=== PATIENT | female | born 1945 | race Caucasian/White ===

== ENCOUNTER 2021-10-15 12:58 | Emergency (ER) | payer MEDICARE, SELFPAY ==
--- NOTE | ~2021-10-15 | XR_ITS ---
EXAMINATION: XR chest 2V DATE: 10/15/2021 14:31 INDICATION: Cough and shortness of breath. TECHNIQUE: Frontal and lateral views of the chest were obtained. COMPARISON: Chest 2 views 09/06/2015 FINDINGS: The chest demonstrates clear lungs without pneumonia, pleural effusion, or pneumothorax. Th e heart size is normal. Surgical clips in the right upper quadrant are likely from cholecystectomy. IMPRESSION: 1. No acute cardiopulmonary disease. Reviewed, dictated and finalized at [facility].
[2021-10-15 13:09] VITALS: BP 120/73; PULSE 86; RESP 20; TEMP 36.2; O2SAT 97
[2021-10-15 14:27] LABS: Basophils Percent Auto 0.2 % (0.2-1.2); Eosinophils Absolute Auto 0.1 K/mm3 (0-0.3); Eosinophils Percent Auto 0.8 % (0-4.4); Hematocrit 42.8 % (37.0-47.0); Hemoglobin 14.1 g/dL (12.0-15.0); Immature Granulocyte Absolute 0.06 K/mm3 (0.00-0.031); Immature Granulocyte Percent A 0.5 % (0-0.5); Lymphocytes Absolute Auto 1.92 K/mm3 (0.9-3.2); Mean Corpuscular HGB Conc 32.9 g/dl (32-36); Mean Corpuscular Hemoglobin 27.8 pg (26-34); Mean Corpuscular Volume 84.3 fl (80-100); Mean Platelet Volume 9.5 fl (7.4-10.4); Monocytes Percent Auto 7.8 % (2.6-8.5); Neutrophils Absolute Auto 9.7 K/mm3 (1.3-6.7); Neutrophils Percent Auto 75.7 % (45.5-73.1); Platelet Count Result 327 k/mm3 (150-375); Red Blood Count 5.08 M/mm3 (4.2-5.4); Red Cell Distribution Width 12.1 % (11.5-14.5); White Blood Count 12.8 K/mm3 (4.5-10.0)
[2021-10-15 14:37] LABS: Alanine Aminotransferase 20 U/L (6-35); Alkaline Phosphatase 230 U/L (38-126); Anion Gap 6 mmol/L (8-16); Aspartate Amino Transferase 20 U/L (14-36); Bilirubin,Total 0.6 mg/dL (0.2-1.3); Blood Urea Nitrogen 11 mg/dL (7-17); Carbon Dioxide 29 mmol/L (22-30); Chloride 100 mmol/L (98-107); Estimated CRCL calculation 56 ml/min; Estimated Glomerular Filt Rate > 60; Glucose 224 mg/dL (65-110); Potassium 3.8 mmol/L (3.4-5.0); Sodium 135 mmol/L (137-145)
[2021-10-15 14:52] LABS: Appearance Urine Slightly Cloudy (Clear); Bilirubin Urine Negative (Negative); Blood Urine 2+ (Negative); Color Urine Yellow (Yellow); Glucose Urine UA 1+ mg/dL (Negative); Ketones Urine 1+ mg/dL (Negative); Leukocyte Esterase Ur 2+ LEU/UL (Negative); Nitrate Urine Positive (Negative); Protein Urine 1+ mg/dL (Negative)
[2021-10-15 14:56] LABS: Bacteria Urine 4+ /hpf; Mucus Urine Rare /lpf; Squamous Epithelial Cell Urine Rare /hpf (Few); WBC Urine >75 /hpf
[2021-10-15 14:58] LABS: Add Urine Microscopic? YES
[2021-10-15 15:06] LABS: SARS-CoV-2 RNA PCR Negative
--- NOTE | 2021-10-15 15:41 | ED.URI ---
HPI - URI/Sore Throat General Chief Complaint: Upper Respiratory Infection Stated Complaint: Upper respiratory symptoms Time Seen by Provider: 10/15/21 14:16 Source: patient History of Present Illness HPI Narrative: Patient presents with cough and congestion for the past few days. She also reports chills and some nausea. Of note she had a ureter biopsy a couple days ago she reports she had some cough congestion prior to but since the biopsy she developed the chills and nausea. She reached out to her urologist performed biopsy and he recommended that she go to the emergency room to be evaluated for postprocedural infection. Patient denies any abdominal pain she denies any urinary symptoms she denies diarrhea she denies any shortness of breath. Related Data Home Medications Medication Instructions Recorded Confirmed fluticasone propionate 50 1 spray intranasal DAILY 05/17/19 mcg/actuation nasal spray,suspension gabapentin 300 mg capsule 300 mg PO QID 05/17/19 insulin aspar prt-insulin aspart subcut DAILY 05/17/19 100 unit/mL (70-30) subcutaneous soln (Novolog Mix 70-30 U-100 Insuln) insulin glargine 100 unit/mL (3 30 unit subcut 05/17/19 mL) subcutaneous pen (Lantus Solostar U-100 Insulin) lovastatin 40 mg tablet 40 mg PO DAILY 05/17/19 mupirocin 2 % topical ointment 1 applic topical TID 05/17/19 omega 7-yrn-kdg-fish oil 1,000 mg 1 cap PO BID 05/17/19 (120 mg-180 mg) capsule (Fish Oil) omeprazole 20 mg capsule,delayed 05/17/19 release Allergies Allergy/AdvReac Type Severity Reaction Status Date / Time acetaminophen Allergy Unknown Unknown Verified 05/17/19 18:19 codeine Allergy Unknown Vomiting Verified 05/17/19 18:19 diphenhydramine Allergy Unknown Rash Verified 05/17/19 18:19 hydrocodone Allergy Unknown Vomiting Verified 05/17/19 18:19 Review of Systems Review of Systems: CONSTITUTIONAL: Patient with subjective chills and sweats EYES: Denies visual changes, redness, or discharge. ENT: Reports congestion and sinus pressure CARDIOVASCULAR: Denies chest pain, palpitations, or edema. RESPIRATORY: Reports cough GASTROINTESTINAL: Denies abdominal pain, vomiting, or diarrhea. GENITOURINARY: Denies dysuria or hematuria. SKIN: Denies rash or itching. MUSCULOSKELETAL: Denies back pain, joint pain, or myalgia. NEUROLOGIC: Denies headache, numbness, dizziness, or weakness. PSYCHIATRIC: Denies anxiety or depression. All systems reviewed & are unremarkable except as noted in HPI and below PMFSH Past Medical History Medical History Anxiety DM II (diabetes mellitus, type II), controlled GERD (gastroesophageal reflux disease) Hepatitis A Hypercholesteremia Nose fracture Pancreatitis Peripheral neuropathy Sternal fracture Toe fracture Surgical History Surgical History History of cholecystectomy History of hysterectomy Social History Social History Smoking packs per day: 1 Smoking cigarettes per day: 20.0 Smoking status: Current every day smoker Gender identity (if verbalized by the patient): Female Exam Narrative: GENERAL: Well-appearing, well-nourished, and in no acute distress. HEAD: Normocephalic, atraumatic. EYES: PERRLA and EOMI. ENT: Nares clear, no rhinorrhea or epistaxis. Mucous membranes moist. NECK: Supple. No masses. No JVD CHEST: Clear to auscultation. No respiratory distress. No wheezes rales or rhonchi HEART: Regular rate and rhythm. No murmur heard. Normal peripheral pulses. ABDOMEN: Soft, nontender, nondistended, no CVA tenderness EXTREMITIES: Normal range of motion. No edema. SKIN: Warm, dry, no rash. NEURO: No focal deficits. Alert and oriented x3. PSYCH: Normal mood and affect. Course Reevaluation(s) Reevaluation #1: Patient declined supportive therapies in the emergency room and
[2021-10-15] MEDS: levoFLOXacin 750 MG TABLET PO (15:55)
== END 2021-10-15 15:58 | disposition home or self-care (01) ==
PROVIDERS: Emergency Provider Emergency Medicine; PCP Internal Medicine
DX: J06.9 Acute upper respiratory infection, unspecified (principal); N39.0 Urinary tract infection, site not specified; F41.9 Anxiety disorder, unspecified; E11.9 Type 2 diabetes mellitus without complications; F17.210 Nicotine dependence, cigarettes, uncomplicated; Z79.4 Long term (current) use of insulin
CPT/HCPCS: 36415; 71046; 80053; 81001; 85025; 87077; 87086; 87186; 99283; A9270; C9803; U0003; U0005

== ENCOUNTER 2021-11-10 10:58 | Emergency (ER) | payer MEDICARE, SELFPAY ==
--- NOTE | ~2021-11-10 | CT_ITS ---
EXAMINATION: CT brain wo con DATE: 11/10/2021 12:15 INDICATION: Headache, weakness. History of malignancy. TECHNIQUE: Computed tomography (CT) of the head was performed without intravenous contrast. The mA wa s adjusted according to patient size. Iterative reconstruction technique was employed. Exam dose: 52 9.67 mGy-cm total exam DLP. COMPARISON: 05/17/2019 CT brain FINDINGS: Bilateral internal carotid artery calcifications. There is nonspecific diminished attenuati on of the cerebral white matter, likely due to chronic small vessel ischemic changes. No intracranial mass lesion or hemorrhage or cerebrovascular accident, midline shift or mass effect i s noted. No subdural or epidural hematoma. Mild to moderate cerebral volume loss. The paranasal sinuses that are included in the study are unremarkable. Mastoid air cells are normally developed and aerated. No fracture or bone destruction of the cranial vault. IMPRESSION: Cerebral atherosclerosis and chronic small vessel ischemic changes of the cerebral white matter No acute intracranial finding Reviewed, dictated and finalized at [facility]. Reviewed, dictated and finalized at [facility].
[2021-11-10 10:59] VITALS: BP 134/55; PULSE 84; RESP 20; TEMP 36.6; O2SAT 99
--- NOTE | 2021-11-10 11:30 | ECG_ITS ---
Measurements Intervals [place] Rate: 73 P: 69 [place]: 153 QRS: -9 QRSD: 90 T: 34 QT: 375 QTc: 414 Interpretive Statements SINUS RHYTHM ANTEROSEPTAL MYOCARDIAL INFARCTION , OF INDETERMINATE AGE [40+ ms Q WAVE IN V1-V4] COMPARED TO ECG 05/17/2019 18:47:45 MYOCARDIAL INFARCT FINDING NOW PRESENT Electronically Signed On 11-10-2021 22:46:44 CDT by Sarah Clemons M.D.
[2021-11-10 11:32] VITALS: BP 137/65; PULSE 75; PULSE 76; RESP 24; O2SAT 95
[2021-11-10 11:32] LABS: Glucose Point of Care 270 mg/dl (65-105)
--- NOTE | 2021-11-10 11:58 | ED.GENADULT ---
HPI - General Adult General Chief complaint: Unspecified <Katherine Madrigal PA-C - Last Filed: 11/10/21 18:27> Stated complaint: clammy, shakes since last noc <Katherine Madrigal PA-C - Last Filed: 11/10/21 18:27> Time Seen by Provider: 11/10/21 11:47 <Katherine Madrigal PA-C - Last Filed: 11/10/21 18:27> History of Present Illness HPI narrative: Patient is 76-year-old female with a history of diabetes, here with her daughters for evaluation of multiple medical complaints. She tells me that for the past 3 days, she has felt weak, clammy, shaky, and just generally out of it . She notes she has had difficulty controlling her blood sugars and they have been elevated. She also reports a headache over the front of her head that has been intermittent, states that she has never gotten headaches in the past and this is new for her. She has a past medical history of recently diagnosed kidney cancer, for which she follows at [facility]. She is set to get the kidney removed next month. Additionally was treated for UTI last month that grew E. coli on culture. Denies back pain, fevers, shortness of breath, chest pain, abdominal pain. <Katherine Madrigal PA-C - Last Filed: 11/10/21 18:27> Related Data Home medications: Home Medications Medication Instructions Recorded Confirmed fluticasone propionate 50 1 spray intranasal DAILY 05/17/19 mcg/actuation nasal spray,suspension gabapentin 300 mg capsule 300 mg PO QID 05/17/19 insulin aspar prt-insulin aspart unit subcut DAILY 05/17/19 100 unit/mL (70-30) subcutaneous soln (Novolog Mix 70-30 U-100 Insuln) insulin glargine 100 unit/mL (3 25 unit subcut 05/17/19 mL) subcutaneous pen (Lantus Solostar U-100 Insulin) lovastatin 40 mg tablet 40 mg PO DAILY 05/17/19 omega 4-der-lso-fish oil 1,000 mg 1 cap PO BID 05/17/19 (120 mg-180 mg) capsule (Fish Oil) omeprazole 20 mg capsule,delayed 05/17/19 release <Katherine Madrigal PA-C - Last Filed: 11/10/21 18:27> Allergies/adverse reactions: Allergies Allergy/AdvReac Type Severity Reaction Status Date / Time acetaminophen Allergy Unknown Unknown Verified 11/10/21 11:09 codeine Allergy Unknown Vomiting Verified 11/10/21 11:09 diphenhydramine Allergy Unknown Rash Verified 11/10/21 11:09 hydrocodone Allergy Unknown Vomiting Verified 11/10/21 11:09 <Katherine Madrigal PA-C - Last Filed: 11/10/21 18:27> Review of Systems Review of Systems: Gen: Reports weakness, clamminess Eyes: Denies eye pain or visual change ENT: Denies congestion Respiratory: Denies shortness of breath or cough CV: Denies chest pain or palpitations GI: Denies abdominal pain nausea, emesis or diarrhea : denies burning, urgency, frequency or hematuria Musculoskeletal: Denies back pain or muscle pain Neuro: Reports headache. Denies numbness, tingling, weakness or focal weakness Skin: Denies rash Except as documented, all other systems reviewed and negative <Katherine Madrigal PA-C - Last Filed: 11/10/21 18:27> [facility] Past Medical History Medical History: Medical History Anxiety DM II (diabetes mellitus, type II), controlled GERD (gastroesophageal reflux disease) Hepatitis A Hypercholesteremia Nose fracture Pancreatitis Peripheral neuropathy Sternal fracture Toe fracture <Katherine Madrigal PA-C - Last Filed: 11/10/21 18:27> Surgical History Surgical History: Surgical History History of cholecystectomy History of hysterectomy <Katherine Madrigal PA-C - Last Filed: 11/10/21 18:27> Social History Social History: Social History Smoking packs per day: 1 Smoking cigarettes per day: 20.0 Smoking status: Current every day smoker Gender identity (if verbalized by the patien
[2021-11-10] MEDS: SODIUM CHLORIDE 0.9% IV 1,000 ML 999 ML IV CONT (12:03)
[2021-11-10 12:36] LABS: Basophils Percent Auto 0.2 % (0.2-1.2); Eosinophils Percent Auto 0.3 % (0-4.4); Hematocrit 37.5 % (37.0-47.0); Hemoglobin 12.2 g/dL (12.0-15.0); Immature Granulocyte Absolute 0.05 K/mm3 (0.00-0.031); Immature Granulocyte Percent A 0.4 % (0-0.5); Lymphocytes Percent Auto 9.1 % (18.3-44.2); Mean Corpuscular HGB Conc 32.5 g/dl (32-36); Mean Corpuscular Hemoglobin 26.9 pg (26-34); Mean Corpuscular Volume 82.8 fl (80-100); Mean Platelet Volume 10.3 fl (7.4-10.4); Monocytes Percent Auto 8.6 % (2.6-8.5); Neutrophils Absolute Auto 9.8 K/mm3 (1.3-6.7); Neutrophils Percent Auto 81.4 % (45.5-73.1); Platelet Count Result 323 k/mm3 (150-375); Red Blood Count 4.53 M/mm3 (4.2-5.4); Red Cell Distribution Width 12.5 % (11.5-14.5); White Blood Count 12.1 K/mm3 (4.5-10.0)
[2021-11-10 12:38] LABS: Appearance Urine Cloudy (Clear); Bilirubin Urine 1+ (Negative); Blood Urine 2+ (Negative); Color Urine Yellow (Yellow); Glucose Urine UA 3+ mg/dL (Negative); Ketones Urine Trace mg/dL (Negative); Leukocyte Esterase Ur 1+ LEU/UL (Negative); Nitrate Urine Positive (Negative); Protein Urine 1+ mg/dL (Negative); Specific Grav Ur 1.015 (1.001-1.035)
[2021-11-10 12:47] LABS: Alanine Aminotransferase 28 U/L (6-35); Albumin Level 3.6 g/dL (3.5-5.1); Alkaline Phosphatase 231 U/L (38-126); Anion Gap 7 mmol/L (8-16); Aspartate Amino Transferase 31 U/L (14-36); Bilirubin,Total 0.9 mg/dL (0.2-1.3); Blood Urea Nitrogen 17 mg/dL (7-17); Calcium 8.6 mg/dL (8.4-10.2); Carbon Dioxide 26 mmol/L (22-30); Chloride 100 mmol/L (98-107); Estimated CRCL calculation 42 ml/min; Estimated Glomerular Filt Rate > 60; Glucose 261 mg/dL (65-110); Sodium 133 mmol/L (137-145)
[2021-11-10 12:50] LABS: Add Urine Microscopic? YES; Bacteria Urine 1+ /hpf; Mucus Urine Rare /lpf; Squamous Epithelial Cell Urine Occasional /hpf (Few); WBC Clumps Urine Present /HPF; WBC Urine >75 /hpf
[2021-11-10 12:55] LABS: Troponin I < 0.012 ng/mL (0.000-0.034)
[2021-11-10 13:58] VITALS: BP 93/67; PULSE 77; RESP 24; O2SAT 98
[2021-11-10 14:50] VITALS: BP 152/96; PULSE 83; RESP 20; O2SAT 96
== END 2021-11-10 14:52 | disposition home or self-care (01) ==
PROVIDERS: Physician Assistant; Emergency Provider Emergency Medicine; PCP Internal Medicine
DX: N39.0 Urinary tract infection, site not specified (principal); F41.9 Anxiety disorder, unspecified; E11.9 Type 2 diabetes mellitus without complications; K21.9 Gastro-esophageal reflux disease without esophagitis; E78.5 Hyperlipidemia, unspecified
CPT/HCPCS: 36415; 70450; 80053; 81001; 82948; 84484; 85025; 87077; 87086; 87186; 93005; 96360; 99284; J7030

== ENCOUNTER 2021-11-25 11:21 | Emergency (ER) | payer MEDICARE, SELFPAY ==
--- NOTE | ~2021-11-25 | CT_ITS ---
EXAMINATION: CT abdomen pelvis wo con DATE: 11/25/2021 12:34 INDICATION: Abdominal pain. Intractable nausea and vomiting. TECHNIQUE: Computed tomography (CT) of the abdomen and pelvis was performed without intravenous contr ast (allergy to intravenous contrast material).. Automated exposure control and iterative reconstruct ion technique were employed. Exam dose: 262.81 mGy-cm total exam DLP. COMPARISON: 09/02/2015 CT abdomen pelvis FINDINGS: Mild bilateral lower lobe dependent atelectasis. Normal heart size. No pericardial or pleural effusion. Status post cholecystectomy. No hepatic, splenic or pancreatic space-occupying mass lesion or bile du ct or pancreatic duct dilatation is detected. Prostate 2.1 x 3 cm and 1.3 x 1.7 cm left adrenal soft tissue masses. The right adrenal gland is unremarkable. There is mild to moderate left hydronephrosis no urinary tract calculus is identified. There is a very large heterogeneous mass occupying the majority of the right kidney, likely a large r enal cell carcinoma. There is mild right perinephric stranding. Consider MRI examination. The urinary bladder is unremarkable. Status post hysterectomy. Mild bilateral fat containing inguinal hernias. Normal appendix. Diverticulosis of the sigmoid colon; no CT evidence of diverticulitis. No bowel obstruction or intrap eritoneal free air. There is atherosclerotic calcification of the abdominal aorta. No intraperitoneal or retroperitoneal or pelvic mass lesion or adenopathy or ascites is noted otherwise. IMPRESSION: Large heterogeneous soft tissue mass occupying much of the right kidney, likely a large renal cell carcinoma. Consider MR evaluation Dr. Nguyen telephoned the report on 11/25/2021 at 1258 hours to emergency room physician Dr. Rodriguez Reviewed, dictated and finalized at [facility]. Reviewed, dictated and finalized at [facility]. IMPRESSION: Large heterogeneous soft tissue mass occupying much of the right k [place], likely a large renal cell carcinoma. Consider MR evaluation Dr. Nguyen telephoned the report on 11/25/2021 at 1258 hours to emergency room tracy Rodriguez
--- NOTE | 2021-11-25 11:24 | ED.NAVMDI ---
HPI - Nausea/Vomiting/Diarrhea General Chief complaint: Nausea/Vomiting/Diarrhea Stated complaint: nausea and vomiting and weakness Time Seen by Provider: 11/25/21 11:24 History of Present Illness HPI Narrative: The patient is a 76-year-old female with a history of insulin-dependent diabetes, hyperlipidemia presenting to the emergency department for evaluation of intractable nausea and vomiting. Patient states that she has been diagnosed with recurrent urinary tract infection and currently is being prescribed Macrobid. Patient reports finishing 2 courses of previous antibiotics for which she does not currently remember the names of. Patient denies fever or chills, but reports generalized malaise and abdominal cramping. She denies specific pain. She states that she is able to eat only small bites of food before then having extensive episodes of dry heaving. She has been prescribed Zofran which does help somewhat alleviate the nausea intermittently. Patient denies any current flank pain. She denies persistent dysuria or hematuria. She denies cough, chest pain, shortness of breath. She does still smoke cigarettes. Per daughters, patient does have a new diagnosis of kidney cancer, following at [facility]. Patient per chart review with antibiotic course of Levaquin and then Bactrim in October for treatment of recurrent UTI. Urine culture positive for E. coli, sensitive to Augmentin, nitrofurantoin, cefepime. Reviewed cultures and sensitivities. Related Data Home Medications Medication Instructions Recorded Confirmed gabapentin 300 mg capsule 300 mg PO QID 05/17/19 insulin aspar prt-insulin aspart 5 unit subcut TIDWMEAL 05/17/19 100 unit/mL (70-30) subcutaneous soln (Novolog Mix 70-30 U-100 Insuln) insulin glargine 100 unit/mL (3 30 unit subcut 05/17/19 mL) subcutaneous pen (Lantus Solostar U-100 Insulin) lovastatin 40 mg tablet 40 mg PO DAILY 05/17/19 omega 5-wxo-caj-fish oil 1,000 mg 1 cap PO BID 05/17/19 (120 mg-180 mg) capsule (Fish Oil) omeprazole 20 mg capsule,delayed 05/17/19 release nitrofurantoin cap 11/25/21 monohydrate/macrocrystals 100 mg capsule Allergies Allergy/AdvReac Type Severity Reaction Status Date / Time acetaminophen Allergy Unknown Unknown Verified 11/10/21 11:09 codeine Allergy Unknown Vomiting Verified 11/10/21 11:09 diphenhydramine Allergy Unknown Rash Verified 11/10/21 11:09 hydrocodone Allergy Unknown Vomiting Verified 11/10/21 11:09 Review of Systems Review of Systems: CONSTITUTIONAL: Denies fever, chills, or sweats. EYES: Denies visual changes, redness, or discharge. ENT: Denies rhinorrhea, congestion, sore throat, or otalgia. CARDIOVASCULAR: Denies chest pain, palpitations, or edema. RESPIRATORY: Denies cough or dyspnea. GASTROINTESTINAL: Denies abdominal pain, reports mild cramping with nausea and vomiting, denies diarrhea GENITOURINARY: Denies dysuria or hematuria. SKIN: Denies rash or itching. MUSCULOSKELETAL: Denies back pain, joint pain, or myalgia. NEUROLOGIC: Denies headache, numbness, or weakness. [facility] Past Medical History Medical History Anxiety DM II (diabetes mellitus, type II), controlled GERD (gastroesophageal reflux disease) Hepatitis A Hypercholesteremia Nose fracture Pancreatitis Peripheral neuropathy Sternal fracture Toe fracture Surgical History Surgical History History of cholecystectomy History of hysterectomy Social History Social History Smoking packs per day: 1 Smoking cigarettes per day: 20.0 Smoking status: Current every day smoker Gender identity (if verbalized by the patient): Female Exam Narrative: GENERAL: Awake, alert, conversant HEAD: Normocephalic, atraumatic. EYES: 2+ PERRLA and EOMI. ENT: Nares clear, no rhinorrhea or epist
[2021-11-25 11:26] VITALS: BP 143/54; PULSE 80; RESP 16; TEMP 36.4; O2SAT 99
[2021-11-25 11:46] LABS: Basophils Percent Auto 0.2 % (0.2-1.2); Eosinophils Percent Auto 0.5 % (0-4.4); Hematocrit 35.4 % (37.0-47.0); Hemoglobin 11.1 g/dL (12.0-15.0); Immature Granulocyte Absolute 0.05 K/mm3 (0.00-0.031); Immature Granulocyte Percent A 0.6 % (0-0.5); Lymphocytes Absolute Auto 1.31 K/mm3 (0.9-3.2); Lymphocytes Percent Auto 16.3 % (18.3-44.2); Mean Corpuscular HGB Conc 31.4 g/dl (32-36); Mean Corpuscular Hemoglobin 25.9 pg (26-34); Mean Corpuscular Volume 82.7 fl (80-100); Mean Platelet Volume 8.9 fl (7.4-10.4); Monocytes Absolute Auto 0.8 K/mm3 (0.1-0.6); Neutrophils Absolute Auto 5.8 K/mm3 (1.3-6.7); Neutrophils Percent Auto 72.4 % (45.5-73.1); Platelet Count Result 404 k/mm3 (150-375); Red Blood Count 4.28 M/mm3 (4.2-5.4); Red Cell Distribution Width 13.3 % (11.5-14.5)
[2021-11-25 12:01] LABS: Alanine Aminotransferase 27 U/L (6-35); Albumin Level 3.5 g/dL (3.5-5.1); Alkaline Phosphatase 320 U/L (38-126); Anion Gap 8 mmol/L (8-16); Aspartate Amino Transferase 26 U/L (14-36); Bilirubin,Total 0.3 mg/dL (0.2-1.3); Blood Urea Nitrogen 14 mg/dL (7-17); Calcium 8.4 mg/dL (8.4-10.2); Carbon Dioxide 25 mmol/L (22-30); Chloride 97 mmol/L (98-107); Estimated CRCL calculation 37 ml/min; Estimated Glomerular Filt Rate > 60; Glucose 138 mg/dL (65-110); Lipase 56 U/L (23-300); Potassium 3.8 mmol/L (3.4-5.0); Sodium 130 mmol/L (137-145)
[2021-11-25] MEDS: SODIUM CHLORIDE 0.9% IV 1,000 ML 999 ML IV CONT (12:16)
[2021-11-25] MEDS: METOCLOPRAMIDE HCL INJ 10 MG/2 ML VIAL IV PUSH (12:16)
[2021-11-25 13:17] VITALS: PULSE 69; RESP 20; O2SAT 99
[2021-11-25 13:57] LABS: Appearance Urine Clear (Clear); Bilirubin Urine Negative (Negative); Blood Urine Negative (Negative); Color Urine Yellow (Yellow); Glucose Urine UA Negative (Negative); Ketones Urine Negative (Negative); Leukocyte Esterase Ur Negative LEU/UL (Negative); Nitrate Urine Negative (Negative); Protein Urine Negative (Negative); Urobilinogen Urine 0.2 mg/dL (<2.0)
[2021-11-25 14:10] LABS: Bacteria Urine Trace /hpf; Squamous Epithelial Cell Urine Rare /hpf (Few); WBC Urine 0-3 /hpf
[2021-11-25 14:14] LABS: Add Urine Microscopic? NO
[2021-11-25 15:01] VITALS: BP 137/56; PULSE 67; RESP 19; O2SAT 98
[2021-11-25 15:43] VITALS: BP 127/57; PULSE 78; RESP 16; O2SAT 100
== END 2021-11-25 15:46 | disposition home or self-care (01) ==
PROVIDERS: Emergency Provider Emergency Medicine; PCP Physician Assistant
DX: K52.9 Noninfective gastroenteritis and colitis, unspecified (principal); E86.0 Dehydration; C64.1 Malignant neoplasm of right kidney, except renal pelvis; E78.5 Hyperlipidemia, unspecified; K21.9 Gastro-esophageal reflux disease without esophagitis; E11.42 Type 2 diabetes mellitus with diabetic polyneuropathy; F17.210 Nicotine dependence, cigarettes, uncomplicated; Z87.440 Personal history of urinary (tract) infections; Z79.4 Long term (current) use of insulin
CPT/HCPCS: 36415; 74176; 80053; 81003; 83690; 85025; 96361; 96374; 99284; J2765; J7030

== ENCOUNTER 2021-12-20 09:40 | Outpatient (RCR) | payer MEDICARE, SELFPAY | END 2022-03-07 10:19 | disposition home or self-care (01) | LOC: ANHDMC 09:40 | PROVIDERS: PCP Physician Assistant; Referring Provider Internal Medicine; Visit Provider Internal Medicine | DX: E11.9 Type 2 diabetes mellitus without complications (principal); R63.0 Anorexia; Z71.89 Other specified counseling | CPT/HCPCS: G0108 ==

== ENCOUNTER 2022-10-07 17:57 | Emergency (ER) | payer MEDICARE, SELFPAY ==
[2022-10-07 18:39] VITALS: BP 155/83; PULSE 71; RESP 16; TEMP 36.1; O2SAT 98
--- NOTE | 2022-10-07 18:51 | ED.FEMALEGU ---
HPI - Female Genitourinary General Chief complaint: Urogenital-Female Stated complaint: UTI SYMPTOMS Time Seen by Provider: 10/07/22 18:51 Source: patient Mode of arrival: ambulatory Limitations: no limitations History of Present Illness HPI Narrative: Patient is a 77-year-old female with intermittent abdominal pain, back pain and chills for 2 weeks. Denies any urinary urgency, frequency or burning with urination. States symptoms are similar to the last time she had UTI. Denies any fever, nausea, vomiting, diarrhea. Is a cancer patient, recently taken off oral chemo drug MD elicited complaint: dysuria Related Data Home Medications Medication Instructions Recorded Confirmed gabapentin 300 mg capsule 300 mg PO QID 05/17/19 insulin aspar prt-insulin aspart 5 unit subcut TIDWMEAL 05/17/19 100 unit/mL (70-30) subcutaneous soln (Novolog Mix 70-30 U-100 Insuln) insulin glargine 100 unit/mL (3 30 unit subcut 05/17/19 mL) subcutaneous pen (Lantus Solostar U-100 Insulin) lovastatin 40 mg tablet 40 mg PO DAILY 05/17/19 omega 5-ovy-pgs-fish oil 1,000 mg 1 cap PO BID 05/17/19 (120 mg-180 mg) capsule (Fish Oil) omeprazole 20 mg capsule,delayed 05/17/19 release nitrofurantoin cap 11/25/21 monohydrate/macrocrystals 100 mg capsule Allergies Allergy/AdvReac Type Severity Reaction Status Date / Time codeine Allergy Unknown Vomiting Verified 10/07/22 18:43 diphenhydramine Allergy Unknown Rash Verified 10/07/22 18:43 hydrocodone Allergy Unknown Vomiting Verified 10/07/22 18:43 Review of Systems Review of Systems: All systems reviewed & are unremarkable except as noted in HPI and below Constitutional: Constitutional: Reports chills, Denies fever(s), Denies headache(s), Denies malaise and Denies weakness Eyes: Eyes: Denies change in vision, Denies eye discharge and Denies irritation ENT: Denies otalgia, Denies headache(s), Denies nasal congestion, Denies nasal discharge, Denies sinus pain and Denies sore throat Cardiovascular: Cardiovascular: Denies chest pain, Denies edema, Denies palpitations and Denies dyspnea Respiratory: Respiratory: Denies cough and Denies dyspnea Gastrointestinal: Gastrointestinal: Reports abdominal pain, Denies diarrhea, Denies nausea and Denies vomiting Genitourinary: Genitourinary: Denies hematuria, Denies nocturia, Denies dysuria, Reports flank pain and Denies urinary urgency Musculoskeletal: Musculoskeletal: Denies back pain and Denies numbness Integumentary/Breasts: Skin/Breast: Denies pruritus and Denies rash Neurologic: Denies headache(s), Denies numbness and Denies weakness Psychiatric: Psychiatric: Reports no additional psychiatric complaints Endocrine: Endocrine: Denies palpitations PMFSH Past Medical History Medical History Anxiety DM II (diabetes mellitus, type II), controlled GERD (gastroesophageal reflux disease) Hepatitis A Hypercholesteremia Nose fracture Pancreatitis Peripheral neuropathy Sternal fracture Toe fracture Surgical History Surgical History History of cholecystectomy History of hysterectomy Social History Social History Smoking packs per day: 1 Smoking cigarettes per day: 20.0 Smoking status: Current every day smoker Gender identity (if verbalized by the patient): Female Comments At time of signature, agree with nursing past medical, surgical, social and family history. There is no relevant family history pertinent to the presenting complaint. Exam Const: General: cooperative, healthy appearing, comfortable, no acute distress and well nourished Nutritional Appearance: well nourished Orientation/consciousness: patient oriented x3 HENMT: Head: normocephalic and atraumatic Ears: external ears normal Face/Nose/Sinus: Normal external nose present, No
== END 2022-10-07 19:39 | disposition home or self-care (01) ==
PROVIDERS: Emergency Provider Nurse Practitioner Family
DX: N39.0 Urinary tract infection, site not specified (principal); F17.210 Nicotine dependence, cigarettes, uncomplicated; E11.42 Type 2 diabetes mellitus with diabetic polyneuropathy; K21.9 Gastro-esophageal reflux disease without esophagitis; E78.00 Pure hypercholesterolemia, unspecified; Z79.4 Long term (current) use of insulin; C80.1 Malignant (primary) neoplasm, unspecified
CPT/HCPCS: 81003; 87077; 87086; 87186; 99213; G0463